=== PATIENT | female | born 1995 | race African-American/Black ===

== ENCOUNTER 2025-06-30 16:59 | Emergency (ER) | payer OTHER ==
[~2025-06-30] VITALS: Ht 165.1 cm; Wt 97.0 kg
[2025-06-30 17:07] VITALS: TEMP 98.3; O2SAT 100
[2025-06-30] MEDS ORDERED: IBUPROFEN 800MG TABLET PO ONE (17:45)
[2025-06-30] MEDS ORDERED: BACITRACIN ZINC OINT UDPKT TOP ONE (17:45)
[2025-06-30 19:11] VITALS: BP 134/84; PULSE 106; RESP 16
[2025-06-30] MEDS: IBUPROFEN 800MG TABLET PO NR (19:11)
[2025-06-30] MEDS: BACITRACIN ZINC OINT UDPKT TOP NR (19:12)
== END 2025-06-30 19:17 | disposition home or self-care (01) ==
LOC: ER 16:59
DX: S50.312A Abrasion of left elbow, initial encounter (principal); S60.410A Abrasion of right index finger, initial encounter; S09.8XXA Other specified injuries of head, initial encounter; M54.50 Low back pain, unspecified; M25.551 Pain in right hip; X58.XXXA Exposure to other specified factors, initial encounter; Y93.89 Activity, other specified; Y92.89 Other specified places as the place of occurrence of the external cause; Y99.8 Other external cause status
CPT/HCPCS: 72070; 72100; 73502; 99284